=== PATIENT | female | born 1970 | race African-American/Black ===

== ENCOUNTER 2018-07-21 12:42 | Emergency (ER) | payer OTHER ==
[~2018-07-21] VITALS: Ht 167.6 cm; Wt 90.7 kg
--- NOTE | ~2018-07-21 | EKG ---
[address] [address] ELECTROCARDIOGRAM REPORT Name: NU MORENO Room #: [facility]#: [id number] Admission: 07/21/18 Attend Phys: Discharge: 07/21/18 Date of : 74 Report #: [id number] THIS REPORT FOR: //name// [facility] ED Test Date: 2018-07-21 Test Time: 12:46:43 Pat Name: NU MORENO Department: Room: Gender: F Farm Technician: KIRA : 1970 Requested By: Denis Morfin Order Number: [id number] MD: Lance Arroyo Measurements Intervals [place] Rate: 83 P: 50 [place]: 151 QRS: -20 QRSD: 98 T: 28 QT: 384 QTc: 452 Interpretive Statements Sinus rhythm Normal tracing Compared to ECG 12/17/2013 10:22:14 No significant change was found Electronically Signed On 07-22-2018 7:50:37 INDIRECT SALES EXEC by Lance Arroyo [email or web address] <ELECTRONICALLY SIGNED> By: Lance Arroyo MD, [facility] 07/22/18 0750 1246 124 Lance Arroyo MD, FACC /EPI
[~2018-07-21 12:42] MED LIST: ACETAMINOPHEN325 M1 PO; LOPRESSOR25 PO; LOTENSIN20 MG PO; NAPROSYN500 MG PO; NOHOMEMEDICATIONS
[2018-07-21] MEDS ORDERED: ZESTORETIC 20-1 EAC1 PO (12:47)
[2018-07-21 13:03] LABS: ABSOLUTE NEUTROPHILS 5.7 thou/uL (1.4-8.2); BASOPHILS 0.4 % (0.0-2.0); HEMATOCRIT 34.1 % (37.0-47.0); HEMOGLOBIN 11.5 gm/dL (12.0-15.0); LYMPHOCYTES 9.5 % (24.0-44.0); MCH 28.4 pg (26.0-34.0); MCHC 33.8 g/dL (28.0-37.0); MCV 83.9 fL (80.0-100.0); MONOCYTES 7.4 % (1.0-8.0); PLATELET COUNT 259 thou/uL (150-400); POLYS 80.7 % (36.0-66.0); RBC 4.07 mil/uL (4.20-5.00); RDW 23.1 % (10.5-14.5)
[2018-07-21 13:10] LABS: ANION GAP 7 mmol/L (7-16); BUN 15 mg/dL (7-18); CALCIUM 9.2 mg/dL (8.5-10.1); CHLORIDE 105 mmol/L (98-107); CO2 32 mmol/L (21-32); CREATININE 1.1 mg/dL (0.6-1.0); GLUCOSE 99 mg/dL (74-106); POTASSIUM 3.7 mmol/L (3.5-5.1); SODIUM 144 mmol/L (136-145)
[2018-07-21 13:19] LABS: ALBUMIN 3.5 g/dL (3.4-5.0); MAGNESIUM 1.7 mg/dL (1.8-2.4); SGOT 31 U/L (15-37); SGPT 18 U/L (30-65); TOTAL BILIRUBIN 0.3 mg/dL (<0.1-1.0); TOTAL PROTEIN 7.7 g/dL (6.4-8.2); TROPONIN-I <0.06 ng/mL (<0.06)
[2018-07-21 13:22] LABS: ANISOCYTOSIS 1+
[2018-07-21] MEDS ORDERED: NORFLEX100 MG PO (14:52)
[2018-07-21] MEDS ORDERED: NAPROSYN500 MG PO (14:52)
[2018-07-21 15:12] VITALS: BP 144/97
== END 2018-07-21 15:14 | disposition home or self-care (01) ==
LOC: ER 12:42
PROVIDERS: Emergency Medicine
DX: R07.89 Other chest pain (principal); M43.6 Torticollis; F17.210 Nicotine dependence, cigarettes, uncomplicated; I10 Essential (primary) hypertension; Z98.890 Other specified postprocedural states